=== PATIENT | female | born 1950 | race African-American/Black ===

== ENCOUNTER → 2018-04-01 | Outpatient (CLI) | payer MEDICARE, MEDICAID ==
[~2018-04-01] MED LIST: AMIT10TA6 PO; ASPI-1158 PO; ATEN50TA PO; CHOL200074 PO; DIPH25CA83 PO; DONE10TA11 PO; HYDR25TA PO; LISI10TA5 PO; LORA10TA7 PO; NITR0.4T49 SL; NORT10CA PO; TRAM50TA3 PO
== END | disposition home or self-care (01) ==
LOC: RAD 12:32
DX: M79.672 Pain in left foot (principal)
CPT/HCPCS: 73630